=== PATIENT | female | born 1965 | race African-American/Black ===

== ENCOUNTER 2016-10-28 20:00 | Emergency (ER) | payer OTHER ==
[2016-10-28 20:06] VITALS: BP 115/69; PULSE 74; TEMP 98.4; BMI 25.8
[2016-10-28] MEDS ORDERED: KETOROLAC TROMETHAMINE 60 MG/2 ML VIAL IM ONE (21:05)
[2016-10-28] MEDS ORDERED: diazePAM 5 MG TABLET PO ONE (21:05)
[2016-10-28] MEDS ORDERED: KETOROLAC TROMETHAMINE 60 MG/2 ML VIAL ONE (21:10)
[2016-10-28] MEDS ORDERED: diazePAM 5 MG TABLET ONE (21:10)
--- NOTE | 2016-10-28 21:18 | PDOC ---
History of Present Illness - General Chief Complaint: Back Pain Stated Complaint: BACK PAIN/SHOULDER PAIN/NECK PAIN Time Seen by Provider: 10/28/16 20:42 History Source: Patient Exam Limitations: No Limitations - History of Present Illness Initial Comments: 10/28/16 21:13 51 yr female states she has chronic pain to right shoulder from a torn rotator cuff injury. Pt is followed by pain management. Pt states "the pills arent working I need a toradol shot and a valium for the spasm, so I can sleep tonight ". Severity: reports: mild Past History - Past Medical History Allergies/Adverse Reactions: Allergies Allergy/AdvReac Type Severity Reaction Status Date / Time amoxicillin AdvReac Mild YEAST Verified 10/28/16 20:02 INFECTION Home Medications: Ambulatory Orders Hydrocodone/Acetaminophen [Vicodin Es 7.5-300 mg Tablet] 1 each PO TID PRN 05/07 Other medical history: chronic pain right shoulder - Surgical History Abdominal Surgery: Yes (GASTRIC BYPASS.) - Immunization History Immunization Up to Date: Yes - Psycho/Social/Smoking Cessation Hx Anxiety: No Suicidal Ideation: No Smoking Status: Yes Smoking History: Current some day smoker Have you smoked in the past 12 months: Yes Number of Cigarettes Smoked Daily: 0 Information on smoking cessation initiated: No Hx Alcohol Use: No Drug/Substance Use Hx: No Substance Use Type: None Trauma Specific PMHX - Complaint Specific PMHX Other History: right shoulder injury Review of Systems - Review of Systems Able to Perform ROS?: Yes Is the patient limited Czech proficient: No Constitutional: No: Symptoms Reported HEENTM: No: Symptoms Reported Respiratory: No: Symptoms reported Cardiac (ROS): No: Symptoms Reported ABD/GI: No: Symptoms Reported : No: Symptoms Reported Musculoskeletal: Yes: Symptoms Reported *Physical Exam - Vital Signs Last Vital Signs Temp Pulse Resp BP Pulse Ox 98.4 F 74 20 115/69 100 10/28/16 20:02 10/28/16 20:02 10/28/16 20:02 10/28/16 20:02 10/28/16 20:02 - Physical Exam General Appearance: Yes: Nourished, Appropriately Dressed HEENT: positive: EOMI, ELIZABETH Neck: negative: Tender, Tender lateral, Tender midline Respiratory/Chest: positive: Lungs Clear, Normal Breath Sounds. negative: Chest Tender Cardiovascular: positive: Regular Rhythm, Regular Rate Extremity: positive: Normal Capillary Refill, Normal Inspection, Tender ( posterior right shoulder to lateral neck soft tissue muscle ttp , no deformity FROM of the shoulder ) Integumentary: positive: Normal Color, Dry, Warm Neurologic: positive: Fully Oriented, Alert, Normal Mood/Affect, Normal Response , Motor Strength 10/12 Medical Decision Making - Medical Decision Making 10/28/16 21:15 cc: acute on chronic pain right shoulder will give toradol and valium and dc home pt will follow with pain management tomorrow pt denies any acute trauma no weakness no fever no chills 11/01/16 13:09 *DC/Admit/Observation/Transfer Diagnosis at time of Disposition: Shoulder pain, acute Qualifiers: Laterality: right Qualified Code(s): M25.511 - Pain in right shoulder - Discharge Dispostion Disposition: HOME Condition at time of disposition: Good - Referrals Referrals: Itz Sultana MD [Primary Care Provider] - Scott Rodrigues MD [Staff Physician] - - Patient Instructions Additional Instructions: follow with your pain management doctor tomorrow for follow up apply ice to the area of pain every 2hrs for 20 minutes while awake avoid overuse of the right shoulder as this can make pain worse. follow with the orthopedist if pain worsens
== END 2016-10-28 21:27 | disposition home or self-care (01) ==
LOC: JERFT 20:00
PROC: 3E0233Z Introduction of Anti-inflammatory into Muscle, Percutaneous Approach (ICD-10-PCS; principal; 2016-10-28)
DX: M25.511 Pain in right shoulder (principal)
CPT/HCPCS: 96372; 99281-25

== ENCOUNTER 2016-12-25 10:47 | Emergency (ER) | payer OTHER ==
[2016-12-25 10:53] VITALS: BP 118/74; PULSE 61; TEMP 98; BMI 25.8
[2016-12-25] MEDS ORDERED: KETOROLAC TROMETHAMINE 60 MG/2 ML VIAL IM ONE (11:57)
[2016-12-25] MEDS ORDERED: diazePAM 5 MG TABLET PO ONE (11:58)
[2016-12-25] MEDS ORDERED: KETOROLAC TROMETHAMINE 60 MG/2 ML VIAL ONE (11:59)
[2016-12-25] MEDS ORDERED: diazePAM 5 MG TABLET ONE (11:59)
--- NOTE | 2016-12-25 12:02 | PDOC ---
History of Present Illness - General Chief Complaint: Pain Stated Complaint: SWOLLEN FACE Time Seen by Provider: 12/25/16 11:24 History Source: Patient Exam Limitations: No Limitations - History of Present Illness Initial Comments: 12/25/16 12:09 Chief complaint: Left facial swelling and toothache and right lateral neck pain with muscle spasm History of present illness: Patient is a 51 year old female with a history of anemia, herniated lumbar disc, GERD, anxiety, right rotator cuff injury, chronic neck pain with muscle spasm here today complaining of worsening toothache left upper molar unsure of how long but "has been a while "with facial swelling noted today. Patient reports that she is afraid of dentists patient goes to [facility]. Pt. reports having rt. lateral neck pain with spasm pain is currently a 9 out of 10. Patient denies any radiation of pain down the arm or any numbness of arm. Patient denies any fever. Patient goes to physical therapy 3 times a week for her right rotator cuff injury. 12/25/16 12:21 12/25/16 12:32 Timing/Duration: getting worse Severity: severe Associated Symptoms: reports: other (left upper molar toothache for (long time) left sided facial swelling today ) Past History - Past Medical History Allergies/Adverse Reactions: Allergies Allergy/AdvReac Type Severity Reaction Status Date / Time amoxicillin AdvReac Mild YEAST Verified 12/25/16 10:53 INFECTION Home Medications: Ambulatory Orders Hydrocodone/Acetaminophen [Vicodin Es 7.5-300 mg Tablet] 1 each PO TID PRN 05/07 Anemia: Yes GI Disorders: Yes (gerd) Other medical history: rt. rotator cuff injury, chronic neck pain with spasm, Comment:: 12/25/16 11:59 - Surgical History Abdominal Surgery: Yes (GASTRIC BYPASS.) - Immunization History Immunization Up to Date: Yes - Psycho/Social/Smoking Cessation Hx Anxiety: No Suicidal Ideation: No Smoking Status: Yes Smoking History: Current some day smoker Have you smoked in the past 12 months: Yes Number of Cigarettes Smoked Daily: 0 Information on smoking cessation initiated: No Hx Alcohol Use: No Drug/Substance Use Hx: No Substance Use Type: None Review of Systems - Review of Systems Able to Perform ROS?: Yes Constitutional: No: Symptoms Reported HEENTM: Yes: Dental Problems (left upper molar pain with swelling around gum) Respiratory: No: Symptoms reported Cardiac (ROS): No: Symptoms Reported ABD/GI: No: Symptoms Reported Musculoskeletal: Yes: Neck Pain (right lateral neck pain with spasm ) Integumentary: Yes: Other (left sided facial swelling ) Neurological: No: Symptoms reported *Physical Exam - Vital Signs Last Vital Signs Temp Pulse Resp BP Pulse Ox 98 F 61 18 118/74 99 12/25/16 10:49 12/25/16 10:49 12/25/16 10:49 12/25/16 10:49 12/25/16 10:49 - Physical Exam General Appearance: Yes: Appropriately Dressed HEENT: positive: TMs Normal, Other (left upper molar # 13 decay with surrounding edema of gum with tenderness). negative: Pharyngeal Erythema, Tonsillar Exudate, Tonsillar Erythema Neck: positive: Tender lateral (right lateral with muscle spasm). negative: Trachea midline, Decreased range of motion, Lymphadenopathy (R), Lymphadenopathy (L), Rigidity, Tender midline Respiratory/Chest: positive: Lungs Clear, Normal Breath Sounds. negative: Chest Tender, Respiratory Distress Cardiovascular: positive: Regular Rhythm, Regular Rate, S1, S2 Integumentary: positive: Swelling (left lower facial edema ), Other Neurologic: positive: Alert, Normal Response, Motor Strength 5/5 (b/l upper extremity) Medical Decision Making - Medical Decision Making 12/25/16 12:21 Patient is a 51 year old female with a history of anemia, herniated lumbar disc , GERD, right rotator cuff injury, chronic neck pain with muscle spasm here today complaining of worsening toothache left upper molar unsure of how long but "has been a while "with facial swelling noted today. Patient reports that she is afraid of dentists patient goes to [facility]. Pt. reports having rt. lateral neck pain with spasm pain is currently a 9 out of 10. Patient denies any radiation of pain down the arm or any numbness of arm. Patient denies any fever. Patient goes to physical therapy 3 times a week for her right rotator cuff injury. Right lateral neck pain with muscle spasm left upper molar abscess PLAN: toradol 60 mg IM now valiium 5 mg po now (PT. DID NOT TAKE XANAX TODAY WARNED NOT TO TAKE TODAY clindamycin 300 mg po now than every 8 hrs for 7 days folllow up with dental 12/25/16 12:32 *DC/Admit/Observation/Transfer Diagnosis at time of Disposition: Tooth abscess, Chronic neck pain, Muscle spasms of neck - Discharge Dispostion Disposition: HOME Condition at time of disposition: Stable - Patient Instructions Additional Instructions: Follow up with your orthopedist that she normally see Return to emergency room for worsening facial swelling, fever, or any new symptoms develop Follow up with dentist of your choice Do not take xanax (alprazolam) today Patient voiced understanding of discharge instructions and all questions were answered
[2016-12-25] MEDS ORDERED: CLINDAMYCIN HCL 300 MG CAPSULE PO ONE (12:19)
== END 2016-12-25 12:37 | disposition home or self-care (01) ==
LOC: JERFT 10:47
PROC: 3E0233Z Introduction of Anti-inflammatory into Muscle, Percutaneous Approach (ICD-10-PCS; principal; 2016-12-25)
DX: M54.2 Cervicalgia (principal); M62.838 Other muscle spasm; K04.7 Periapical abscess without sinus
CPT/HCPCS: 96372; 99281-25

== ENCOUNTER 2023-07-13 08:27 | Emergency (ER) | payer OTHER ==
[2023-07-13 08:44] VITALS: BP 133/73; PULSE 95; RESP 18; TEMP 98.4; BMI 31.4
[2023-07-13] MEDS ORDERED: guaiFENesin/D-METHORPHAN HB 10 ML UNIT-DOSE CUPS PO ONE (09:13)
[2023-07-13] MEDS ORDERED: ALBUTEROL SO4 2.5/IPRATROPIUM 0.5 INH SOL 3 ML VIAL.NEB. NEB ONE ×2 (09:13→09:19)
[2023-07-13] MEDS ORDERED: guaiFENesin/D-METHORPHAN HB 10 ML UNIT-DOSE CUPS ONE (09:19)
== END 2023-07-13 10:43 | disposition home or self-care (01) ==
LOC: JER 08:27
PROC: 3E0F7GC Introduction of Other Therapeutic Substance into Respiratory Tract, Via Natural or Artificial Opening (ICD-10-PCS; principal; 2023-07-13)
DX: R05.9 Cough, unspecified (principal); R07.0 Pain in throat; R07.89 Other chest pain; J10.1 Influenza due to other identified influenza virus with other respiratory manifestations; Z20.822 Contact with and (suspected) exposure to COVID-19
CPT/HCPCS: 0241U-QW; 99283-25